=== PATIENT | female | born 1960 | race Caucasian/White ===

== ENCOUNTER 2024-11-27 12:20 | Emergency (ER) | payer MEDICARE, OTHER ==
[~2024-11-27] VITALS: Ht 154.9 cm; Wt 89.4 kg
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
[2024-11-27 13:49] LABS: Hematocrit 43.5 % (36.0-46.0); Hemoglobin 14.3 g/dL (12.2-16.2); Mean Corpuscular Hemoglobin 27.4 pg (28.0-32.0); Mean Corpuscular Volume 83.5 fL (80.0-100.0); Nucleated Red Blood Cells % 0.1 %
--- NOTE | 2024-11-27 13:54 | DVH ---
EXAM: XY CHEST XRAY 1 VIEW Indication: pain Technique: Single frontal view of the chest was obtained Comparison: None FINDINGS: Lines and Tubes: None Lungs: No focal consolidation. Pleura: No effusion. No pneumothorax. Cardiomediastinal contours: Unremarkable. Atherosclerotic vascular calcifications of the thoracic ao rta are noted. Bones: No acute osseous abnormality. IMPRESSION: No acute cardiopulmonary disease.
[2024-11-27 13:55] LABS: Chloride 104 mmol/L (98-107); Potassium 4.2 mmol/L (3.5-5.1); Sodium 139 mmol/L (136-145)
[2024-11-27 13:56] LABS: Anion Gap 10 (5-15); Calcium 10.6 mg/dL (8.7-10.4); Carbon Dioxide 25 mmol/L (20-31)
[2024-11-27 14:01] LABS: BUN/Creatinine Ratio 18.1 (10.0-20.0); Blood Urea Nitrogen 19 mg/dL (9-23); Glucose 92 mg/dL (74-106)
[2024-11-27 16:23] VITALS: BP 167/67; PULSE 86; RESP 20; TEMP 98.1; O2SAT 95
[2024-11-27] MEDS: IBUPROFEN 600 MG TAB PO ONE (16:34)
--- NOTE | 2024-11-28 06:36 | ECG ---
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
== END 2024-11-27 16:35 | disposition home or self-care (01) ==
LOC: ER 12:20
DX: M79.10 Myalgia, unspecified site (principal); R51.9 Headache, unspecified; Z88.0 Allergy status to penicillin; Z79.899 Other long term (current) drug therapy
CPT/HCPCS: 36415; 71045; 80048; 84484; 85025; 93005